=== PATIENT | female | born 1975 | race Caucasian/White ===

== ENCOUNTER → 2020-09-30 | Outpatient (CLI) | payer OTHER ==
[~2020-09-30] MED LIST: ACYCLOVIR 400400 MG PO; ACZONE60 G1; ESTRACE42.5 GM; PROPAFENONE HC225 M1 PO; SPIRONOLACTONE50 MG PO; ZOCOR 20 MG TAB20 M1 PO
== END ==
LOC: LAB 09:11
PROVIDERS: ATTEND Ophthalmology
DX: Z01.812 Encounter for preprocedural laboratory examination (principal); Z20.828 Contact with and (suspected) exposure to other viral communicable diseases

== ENCOUNTER 2020-10-02 06:46 | Day surgery (SDC) | payer OTHER ==
[~2020-10-02] VITALS: Ht 170.2 cm; Wt 63.5 kg
[2020-10-02 07:33] VITALS: BP 114/66
[2020-10-02 07:51] LABS: CALCIUM 9.1 mg/dL (8.5-10.1); POTASSIUM 4.2 mmol/L (3.5-5.1)
--- NOTE | 2020-10-06 06:23 | O ---
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 PROCEDURE: Excision of lesion of right lower lid with myocutaneous advancement flap repair of defect, silicone lacrimal intubation, nasal surgical video endoscopy. SURGEON: Fox Solis MD DECKHAND: None. ANESTHESIA: General. COMPLICATIONS: None. INDICATIONS FOR SURGERY: This pleasant 45-year-old woman has a papillomatous lesion in her medial right lower lid directly overlying the punctum destroying the lid margin. She presents today for excision of this lesion with permanent histopathologic analysis of the tissue removed along with recanalization of her lacrimal outflow tract with silicone tube. Informed consent was obtained to include but not limited to the potential risk for loss of vision, bleeding, infection, failure to improve the problem, and almost certain need for further treatment. DESCRIPTION OF PROCEDURE: The patient was taken to the operating room where general anesthesia was administered. The right medial canthal area and the right lower lid in addition to the right lateral wall of the nose was then infiltrated with Xylocaine with epinephrine mixed with Marcaine and Wydase. The right side of the nose was then packed with Afrin-soaked cottonoids. The patient was subsequently prepped and draped in the usual sterile fashion. A [facility] [address] [place] [address] OPERATIVE REPORT Name: JOSE GUADALUPE LOONEY Rupa Room #: [facility]#: [id number] Admission: 10/02/20 Attend Phys: Fox Solis MD Discharge: 10/02/20 Date of : 73 Report #: [id number] fine tip skin marking pen was then utilized to outline the lesion including approximately 1 mm or so of normal-appearing tissue on each side. The incisions were then made perpendicularly across the eyelid margin. This included the punctum and the proximal portion of the horizontal canaliculus inferiorly. The specimen was then passed off the field for permanent histopathologic analysis after discussion with the pathologist directly. Hemostasis having been achieved, the inferior canaliculus stump was then drawn back up on the eyelid margin with sharp dissection. A Ventura tube was then passed through the inferior canaliculus into the lacrimal sac and subsequently down the nasolacrimal duct into the inferior meatus. The cottonoids were removed from the nose and the nasal vault inspected. The silicone tube was then grasped under the inferior turbinate with a Ventura hook. The superior system was similarly cannulized after the superior punctum had been dilated. A myocutaneous flap was then developed laterally to be rotated and to correct the defect in the right lower lid. Hemostasis was then re-achieved. The flap was then advanced and secured with multiple interrupted 6-0 Vicryl sutures deep. The eyelid margin was reapproximated with interrupted 7-0 Vicryl sutures. Care was taken to ensure that the Ventura tube was not captured. A final closure of 6-0 plain gut suture was then undertaken. The wound was then cleaned and dressed with erythromycin ointment. The silicone tubes were cut and then secured to themselves with 3 square throws. They were then secured to the lateral wall of the nose with one 5-0 Prolene suture. The patient subsequently transported to the recovery area having tolerated the procedures well with no anesthetic or operative complications being noted and further treatment being planned. <ELECTRONICALLY SIGNED> By: Fox Solis MD 10/06/20 0623 [id number] Fox Solis MD /nt
--- NOTE | 2020-10-07 16:06 | PATH ---
[facility] [place] [address] PATHOLOGY RPT PROCEDURE Name: MEJIA STARRNARAYAN Goode Room #: [facility]P [facility] MChristopherR.#: [id number] Admission: 10/02/20 Date of : 73 Discharge: 10/02/20 Report #: [id number] Path Case #: [id number] [facility] Accession Number: [id number] . 01 Material submitted: . eye - RIGHT LOWER EYE LID LESION. Modifiers: right, lower . 01 Clinical history: . EXCISION EYE LESION RIGHT LOWER LID/ FLAP REPAIR . 02 Diagnosis: Skin, right lower eyelid lesion, excision: - Squamous papilloma with mild squamous dysplasia. - No definite high-grade dysplasia identified. (IUV:od; 10/03/2020) QMS 10/03/2020 1338 Local . 02 Comment: A properly controlled p16 immunohistochemical stain is performed on block A1 and it shows no evidence of diffuse reactivity present. In addition, the block is sent for HPV JONAS studies. The results of these will be reported in an addendum to follow. (IUV:do; 10/03/2020) . 02 Addendum: . This addendum is issued subsequent to reviewing properly-controlled HPV JONAS studies performed on block A1. With appropriate positive and negative controls. These studies are interpreted as follows: . HPV JONAS 6/11 - Non-reactive/no granular reactivity or viral granules identified. . HPV JONAS 16/18 - Non-reactive/no granular reactivity or viral granules identified. . HPV JONAS 31/33 - Non-reactive/no granular reactivity or viral granules identified. (IUV:mml; 10/07/2020) . . Professional services performed by [facility] at [facility], [address] [place] [address],.[place] [address]. Technical services performed by [facility], [address] [place] [address], [address], [place] [address]. [facility]/10/07/2020 Addendum Electronically Signed by Jolene Morales MD, Pathologist . 02 Electronically signed: . [facility] [address] [place] [address] PATHOLOGY RPT PROCEDURE Name: JOSE GUADALUPE STARR Room #: [facility]P [facility] Adam#: [id number] Admission: 10/02/20 Date of : 73 Discharge: 10/02/20 Report #: [id number] Path Case #: [id number] Jolene Morales MD, Pathologist NPI- [id number] . 01 Gross description: . The specimen is received in formalin, labeled "Jose Guadalupe Starr, right lower eyelid" and consists of a wedge-segment of pink-hunt tissue measuring 0.6 x 0.4 x 0.4 cm displaying a raised white-hunt lesion measuring 0.3 x 0.3 cm. The margin is inked black. It is bisected and entirely submitted in A1. (SDY; 10/02/2020) SYU/SYU 10/02/2020 1314 Local . 02 Pathologist provided ICD-10: D23.112 . 02 CPT . 530734, W72175, X92680, M29196 Specimen Comment: A courtesy copy of this report has been sent to [phone], [phone] Specimen Comment: [phone] Specimen Comment: Report sent to / DR APONTE Performed at: [address] [facility], [place], [place] [id number] MD Adonis Menezes MD Phone: [phone] Performed at: [address] [facility] [id number] MD Jolene Morales MD Phone: [phone]
== END 2020-10-02 10:20 | disposition home or self-care (01) ==
LOC: OR → TBA 06:46 → OR 06:46 → TBA 06:56 → OR 10:20
PROVIDERS: ATTEND Ophthalmology
DX: D23.112 Other benign neoplasm of skin of right lower eyelid, including canthus (principal); H04.551 Acquired stenosis of right nasolacrimal duct; E78.5 Hyperlipidemia, unspecified; Z98.890 Other specified postprocedural states; Z79.899 Other long term (current) drug therapy
CPT/HCPCS: 50010; 50101; 50386; 50398; 51636; 51777; 56528; 56531; 62110; 62850; 64037; 70005